=== PATIENT | female | born 1950 ===

== ENCOUNTER 2017-08-30 14:55 | Emergency (ER) | payer OTHER ==
[2017-08-30 15:03] VITALS: PULSE 78; O2SAT 98
[2017-08-30] MEDS ORDERED: Sodium Chloride 0.9% 1,000 ML IV STA (15:28)
[2017-08-30] MEDS ORDERED: DiphenhydrAMINE 50 mg/ml Inj IV STA (15:28)
[2017-08-30] MEDS ORDERED: Iohexol 240 (50 ml) PO ONE (15:28)
--- NOTE | 2017-08-30 15:33 | ED PDOC ---
Addendum entered and electronically signed by Frida Alcantara MD 08/30/17 19:14: Addendum Addendum: 08/30/17 19:14 [email or web address] used for translation; [id number] Original Note: HPI: Abdomen History Per: Patient History/Exam Limitations: language barrier Onset/Duration Of Symptoms: Days Current Symptoms Are (Timing): Still Present Severity: Moderate Pain Scale Rating Of: 6 Location Of Pain/Discomfort: RUQ, Epigastric, LUQ Quality Of Discomfort: Burning Associated Symptoms: Fever, Nausea, Vomiting. denies: Chills, Diarrhea, Loss Of Appetite, Constipation Exacerbating Factors: None Alleviating Factors: None Last Bowel Movement: Today <Frida Alcantara - Last Filed: 08/30/17 19:14> <Julio Thompson III - Last Filed: 08/30/17 23:07> Time Seen by Provider: 08/30/17 15:07 Chief Complaint (Nursing): Fever Additional Complaint(s): CC: abdominal pain, fever, leg pain HPI: 66 YO female with PMHx of HTN presents to [facility] ED for abdominal pain, leg pain and fever. Pt states that her abdominal pain started 2+ months ago, vague upper quadrant, burning type pain. About 3 weeks ago, pt started having fevers at night, Tmax of 101.3 last night with one episode of emesis (NBNB). Normal BM , one this AM normal color without any blood. No weight loss, no night sweats or chills. Additionally, pt endorsing itching in her legs that started about 3+ weeks ago, pt has been itching her legs and now has pain on sites where she has been itching. Ambulating, tolerating PO. PMD: none PMHx: HTN SurgHx: denies FH: hx of HTN and DM SHx: lives with family, denies ETOH, smoking and illicit drugs Allergies: NKDA Meds: Atenolol 25mg daily (Frida Alcantara) Supervising Attending Note <Frida Alcantara - Last Filed: 08/30/17 19:14> - Attestation: I have personally seen and examined this patient.: Yes I have fully participated in the care of the patient.: Yes I have reviewed all pertinent clinical information: Yes <Julio Thompson III - Last Filed: 08/30/17 23:07> - Notes: Notes:: agree w resident finding, case endorsed from dr shannon Rx hazel, followup PMD for possible GI referral/ (Julio Thompson III) Past Medical History - Medical History PMH: HTN - Surgical History Surgical History: No Surg Hx - Family History Family History: States: Diabetes, Hypertension - Living Arrangements Living Arrangements: With Family - Social History Current smoker - smoking cessation education provided: No Alcohol: None Drugs: Denies <Frida Alcantara - Last Filed: 08/30/17 19:14> <Julio Thompson III - Last Filed: 08/30/17 23:07> Vital Signs: Last Vital Signs Temp 97 F L 08/30/17 19:23 Pulse 78 08/30/17 19:23 Resp 19 08/30/17 19:23 BP 128/78 08/30/17 19:23 Pulse Ox 98 08/30/17 19:23 - Home Medications Home Medications: Ambulatory Orders Medication Instructions Recorded Famotidine [Pepcid] 20 mg PO DAILY #20 tab 08/30/17 Hydrocortisone 1% Oint [Cortizone 1 appful TP BID #1 tube 08/30/17 1% Oint] - Allergies Allergies/Adverse Reactions: Allergies Allergy/AdvReac Type Severity Reaction Status Date / Time No Known Allergies Allergy Verified 08/30/17 15:01 Review of Systems Constitutional: Positive for: Fever (Tmax 101.3). Negative for: Chills, Sweats , Weight loss <QuintonFrida - Last Filed: 08/30/17 19:14> Physical Exam - Physical Exam Appears: Positive for: No Acute Distress Head Exam: Positive for: ATRAUMATIC Skin: Positive for: Normal Color Eye Exam: Positive for: Normal appearance, EOMI Cardiovascular/Chest: Positive for: Regular Rate, Rhythm. Negative for: Murmur Respiratory: Positive for: Normal Breath Sounds. Negative for: Wheezing Gastrointestinal/Abdominal: Positive for: Normal Exam, Bowel Sounds, Soft, Tenderness (mild epigastric tenderness). Negative for: Distended, Guarding Back: Positive for: Normal Inspection Extremity: Positive for: Normal ROM, Other (DP+ b/l; small plaque like areas of red, excoriation, flaking skin. No bleeding or discharge noted. ). Negative for: Pedal Edema, Calf Tenderness Neurologic/Psych: Positive for: Alert, Oriented <Frida Alcantara - Last Filed: 08/30/17 19:14> - Laboratory Results Result Diagrams: 08/30/17 15:40 08/30/17 15:40 - ECG O2 Sat by Pulse Oximetry: 98 <Frida Alcantara - Last Filed: 08/30/17 19:14> - Laboratory Results Result Diagrams: 08/30/17 15:40 08/30/17 15:40 <Julio Thompson III - Last Filed: 08/30/17 23:07> - Progress ED Course And Treament: 66 YO female with abdominal pain, fever and leg dermatitis. Elevated BP. -cbc, cmp, lipase, udip -CT abd and pelvis -Zofran, IVFs, Pepsid -benadryl, methylpredinesone IV -EKG EKG appreciated; normal sinus with a rate of 76 Blood work appreciated; no acute findings, lipase neg 18:45--pt seen and reevaluated States that she feels well right now, abdominal pain sig improved Blood work and CT findings reviewed with pt CT abd and pelvis: no acute intra-abdominal findings Will d/c pt home with hydrocortisone oint TOP BID, and Pepsid PO Follow up in [facility] (QuintonFrida) Disposition - Patient ED Disposition Is Patient to be Admitted: No - Disposition Disposition: Routine/Home Disposition Time: 19:07 <Frida Alcantara - Last Filed: 08/30/17 19:14> <Julio Thompson III - Last Filed: 08/30/17 23:07> - Clinical Impression Clinical Impression: Abdominal pain - Disposition Referrals: [facility] [Outside] Additional Instructions: Use ointment to legs for one week and gauge improvement/ Return to ER for any worse or new symptoms Use pepcid once daily for 10 days and gauge improvement Utilice el ungento a las piernas para pete semana y la mejora del calibrador Volver a er para los sntomas peores o nuevos Use Pepcid pete vez al da kirsty 10 chavez y mejore el calibre Prescriptions: Famotidine [Pepcid] 20 mg PO DAILY #20 tab Hydrocortisone 1% Oint [Cortizone 1% Oint] 1 appful TP BID #1 tube Instructions: Acute Abdomen (Belly Pain) Forms: [employer] (J[place]ican)
[2017-08-30] MEDS ORDERED: DiphenhydrAMINE 50 mg/ml Inj ONE (15:53)
[2017-08-30] MEDS ORDERED: Iohexol 240 (50 ml) ONE (15:54)
[2017-08-30 16:04] LABS: ALB/GLOB RATIO 1.2 (1.0-2.1); ALBUMIN 4.2 g/dL (3.5-5.0); ALT/SGPT 27 U/L (9-52); AST/SGOT 29 U/L (14-36); BLOOD UREA NITROGEN 17 mg/dl (7-17); CALCIUM 9.5 mg/dL (8.4-10.2); GFR AFRICAN-AMERICAN > 60; GFR NON-AFRICAN AMERICAN > 60; LIPASE 161 U/L (23-300)
[2017-08-30 16:25] LABS: BASO # 0.1 K/uL (0.0-0.2); EOS # 0.3 K/uL (0.0-0.7); EOS % 4.1 % (0.0-4.0); HEMOGLOBIN 12.5 g/dL (12.0-16.0); LYMPH # 2.8 K/uL (1.0-4.3); LYMPH % 41.3 % (20.0-40.0); MEAN CELL VOLUME 84.4 fl (81.0-99.0); MEAN CORPUSCULAR HEMOGLOBIN 27.8 pg (27.0-31.0); MEAN CORPUSCULAR HGB CONC 32.9 g/dL (33.0-37.0); MONO # 0.6 K/uL (0.0-0.8); MONO % 9.3 % (0.0-10.0); NEUT % 44.3 % (50.0-75.0); RBC 4.51 Mil/uL (3.80-5.20); RED CELL DISTRIBUTION WIDTH 13.9 % (11.5-14.5); WHITE BLOOD COUNT 6.8 K/uL (4.8-10.8)
[2017-08-30] MEDS ORDERED: Iohexol 300 100 ML IJ ONE (16:31)
[2017-08-30] MEDS ORDERED: Sodium Chloride 0.9% 50 ML IV ONE (16:32)
--- NOTE | 2017-08-30 18:42 | CT ---
Date of service: 08/30/2017 PROCEDURE: CT Abdomen and Pelvis with contrast HISTORY: Abdominal pain. COMPARISON: None. TECHNIQUE: Contrast dose: 90 cc Omnipaque 300. Radiation dose: Total exam DLP = 764.40 mGy-cm. This CT exam was performed using one or more of the following dose reduction techniques: Automated exposure control, adjustment of the mA and/or kV according to patient size, and/or use of iterative reconstruction technique. FINDINGS: LOWER THORAX: Unremarkable. LIVER: Unremarkable. No gross lesion or ductal dilatation. GALLBLADDER AND BILE DUCTS: Unremarkable. PANCREAS: Unremarkable. No gross lesion or ductal dilatation. SPLEEN: Unremarkable. ADRENALS: Unremarkable. No mass. KIDNEYS AND URETERS: Unremarkable. No hydronephrosis. No solid mass. VASCULATURE: Unremarkable. No aortic aneurysm. Persistent left inferior vena cava common normal variant BOWEL: Diverticulosis without an acute inflammatory component or other associated pathologic process. APPENDIX: No abnormalities to suggest acute appendicitis. No right lower quadrant inflammatory processes identified. PERITONEUM: Unremarkable. No free fluid. No free air. LYMPH NODES: Unremarkable. No enlarged lymph nodes. BLADDER: Unremarkable. REPRODUCTIVE: Unremarkable. BONES: No acute fracture. OTHER FINDINGS: None. IMPRESSION: No acute findings related to/accounting for the clinical presentation. Are benign
[2017-08-30 19:23] VITALS: BP 128/78; RESP 19; TEMP 97
--- NOTE | 2017-09-02 16:41 | CARD ---
APPROVED REPORT Date of service: 08/30/2017 EKG Measurement Heart [id number] <Conclusion> Normal sinus rhythm Normal ECG
== END 2017-08-30 19:24 | disposition home or self-care (01) ==
LOC: H.ER 14:55
DX: R10.9 Unspecified abdominal pain (principal); I10 Essential (primary) hypertension; Z82.49 Family history of ischemic heart disease and other diseases of the circulatory system
CPT/HCPCS: 74177; 80053; 83690; 85025; 93005; 96374; 96375; 99283; J1200; J2405; J2930; J7030; Q9966; Q9967